=== PATIENT | female | born 1945 | race African-American/Black ===

== ENCOUNTER → 2019-11-12 | Outpatient (CLI) | payer OTHER ==
[~2019-11-12] MED LIST: ASPERCREME76.5 GM; ASPIR 8181 MG; BENEPROTEIN1 EACH; CALMOSEPTINE OI71 GM; COLACE100 MG PO; DEPAKOTE ER500 MG; DUONEB 2.5-0.5 M3 ML; HUMALOG100 UNIT/1; HYDRALAZINE 2525 MG; JANUMET 50-5001 EACH; LISINOPRIL20 MG; MACROBID 100 M100 M2; MELATONIN3 MG; MIRALAX17 GM PO; MUCINEX TA600 MG/TA2; NEURONTIN 300300 M1; OXYBUTYNIN 5 MG5 M2; PRAVACHOL40 MG; PROAIR HFA8.5 GM; RISPERDAL0.5 MG; ROBITUSSIN COU1 EAC2; SENNA8.6 MG; SPIRIVA; THERA M PLUS T1 EAC2; TYLENOL325 MG PO; [UNRECOGNIZED DRUG - OTHER]
== END ==
LOC: CAT 10-14 12:36
DX: E04.2 Nontoxic multinodular goiter (principal); I31.3 Pericardial effusion (noninflammatory); K76.0 Fatty (change of) liver, not elsewhere classified; E27.9 Disorder of adrenal gland, unspecified; N26.1 Atrophy of kidney (terminal); N28.1 Cyst of kidney, acquired; M47.814 Spondylosis without myelopathy or radiculopathy, thoracic region